=== PATIENT | male | born 1940 | race Caucasian/White ===

== ENCOUNTER 2018-03-11 13:12 | Emergency (ER) | payer MEDICARE, BC ==
[~2018-03-11] VITALS: Ht 182.9 cm; Wt 161.0 kg
[~2018-03-11 13:12] MED LIST: ASPI81TA82 PO; AZIT250T74 PO; CARD300C5 PO; CEFU1TAB43 PO; DUONI INH; HYDR-2768 PO; MEDR4PAK3 PO; PROT40TA PO; ROBIDMS PO; Z.0.OXYGENDME FM
[2018-03-11 13:23] VITALS: BP 172/79; PULSE 79; RESP 18; TEMP 98.6; O2SAT 93
[2018-03-11] MEDS ORDERED: SODIUM CHLORIDE 0.9% FLUSH 10 ML FLUSH IVF PRN (13:45)
[2018-03-11] MEDS ORDERED: methylPREDNISolone SOD SUCC 125 MG/2 ML VIAL IV PUSH ONE (13:45)
[2018-03-11] MEDS: RESP: ALBUTEROL 2.5 MG/3 ML NEB (SCH) INH (14:03)
[2018-03-11 14:29] LABS: AUTOMATED NEUTROPHIL # 10.8 TH/MM3 (1.8-7.7); BASOPHIL # 0.3 TH/MM3 (0-0.2); BASOPHIL % 1.9 % (0.0-2.0); EOSINOPHIL # 0.1 TH/MM3 (0-0.4); EOSINOPHIL % 0.7 % (0.0-4.0); HEMATOCRIT 42.4 % (39.0-51.0); HEMOGLOBIN 14.2 GM/DL (13.0-17.0); LYMPH % 8.7 % (9.0-44.0); LYMPHOCYTE # 1.2 TH/MM3 (1.0-4.8); MEAN CELL VOLUME 96.8 FL (80.0-100.0); MEAN CORPUSCULAR HEMOGLOBIN 32.5 PG (27.0-34.0); MEAN CORPUSCULAR HGB CONC 33.6 % (32.0-36.0); MEAN PLATELET VOLUME 10.1 FL (7.0-11.0); MONO % 8.6 % (0.0-8.0); MONOCYTE # 1.2 TH/MM3 (0-0.9); NEUT % 80.1 % (16.0-70.0); PLATELET COUNT 169 TH/MM3 (150-450); RED BLOOD COUNT 4.38 MIL/MM3 (4.50-5.90); RED CELL DISTRIBUTION WIDTH 13.1 % (11.6-17.2); WHITE BLOOD COUNT 13.6 TH/MM3 (4.0-11.0)
--- NOTE | 2018-03-11 14:29 | PD ---
HPI Chief Complaint: Cold / Flu Symptoms Time Seen by Provider: 13:37 Travel History International Travel<30 days: No Contact w/Intl Traveler<30days: No Traveled to known affect area: No History of Present Illness HPI 77-year-old male with history of COPD presents with productive cough 1 week. Reporting subjective fever and chills for the last 3 days. Reports orthopnea although reports this is chronic and only slightly worse this week due to the sputum production. He denies chest pain, palpitations. He reports he has chronic dyspnea due to COPD and does not endorse acute worsening. Symptom severity is moderate. No aggravating or alleviating factors. According to the EMR he was last seen in 2012 and admitted for pneumonia. He reports the symptoms are much less severe than his prior visit. [facility] Past Medical History Narrative Medical History of COPD, hypertension Hx Anticoagulant Therapy: No Cancer: Yes (prostate 14 years ago) Cardiovascular Problems: Yes (HTN) COPD: Yes Diabetes: No Diminished Hearing: No Endocrine: No Genitourinary: Yes Hypertension: Yes Immune Disorder: No Musculoskeletal: No Neurologic: No Psychiatric: No Reproductive: No Respiratory: Yes (COPD, ASTHMA) Immunizations Current: Yes Past Surgical History Abdominal Surgery: Yes (gall bladder removed) Cardiac Surgery: No Eye Surgery: Yes (detatched retina left eye, cataract bilat eye sx) Thoracic Surgery: Yes (right lower lobe removed) Social History Alcohol Use: Yes Tobacco Use: No Substance Use: No Allergies-Medications (Allergen,Severity, Reaction): Coded Allergies: No Known Allergies (Unverified Adverse Reaction, Unknown, 03/11/18) Reported Meds & Prescriptions Reported Meds & Active Scripts Active Reported Cardizem CD 24 HR (Diltiazem CD 24 HR) 360 Mg Caper 300 Mg PO DAILY Lisinopril 40 Mg Tab 40 Mg PO DAILY Review of Systems Except as stated in HPI: all other systems reviewed are Neg General / Constitutional: Positive: Fever Eyes: No: Visual changes HENT: No: Headaches Cardiovascular: No: Chest Pain or Discomfort Respiratory: Positive: Cough, Wheezing Gastrointestinal: No: Abdominal Pain Genitourinary: No: Dysuria Musculoskeletal: No: Pain Physical Exam Narrative GENERAL: Alert and well-appearing 77-year-old male. No distress. SKIN: Warm and dry. HEAD: Normocephalic. EYES: No scleral icterus. No injection or drainage. NECK: Supple, trachea midline. No JVD or lymphadenopathy. CARDIOVASCULAR: Regular rate and rhythm without murmurs, gallops, or rubs. RESPIRATORY: Breath sounds equal bilaterally. No accessory muscle use. Faint expiratory wheezes GASTROINTESTINAL: Abdomen soft, non-tender, obese abdomen. MUSCULOSKELETAL: No cyanosis. Bilateral lower extremity nonpitting edema with chronic hyperpigmented discoloration. Patient reports no change in swelling. Extremities are warm. BACK: Nontender without obvious deformity. No CVA tenderness. Data Data Last Documented VS Vital Signs Date Time Temp Pulse Resp B/P (MAP) Pulse Ox O2 Delivery O2 Flow Rate FiO2 03/11/18 14:37 97 Room Air 03/11/18 13:23 98.6 79 18 172/79 (110) Orders Orders Complete Blood Count With Diff (03/11/18 13:44) Basic Metabolic Panel (Bmp) (03/11/18 13:44) B-Type Natriuretic Peptide (03/11/18 13:44) Influenzae A/B Antigen (03/11/18 13:44) Blood Culture (03/11/18 13:44) Iv Access Insert/Monitor (03/11/18 13:44) Chest, Single Ap (03/11/18 13:44) Sodium Chloride 0.9% Flush (Ns Flush) (03/11/18 13:45) Methylprednisolone So Succ Inj (Solumedr (03/11/18 13:45) Albuterol Neb (Albuterol Neb) (03/11/18 13:45) Labs Laboratory Tests Test 03/11/18 14:10 White Blood Count 13.6 TH/MM3 Red Blood Count 4.38 MIL/MM3 Hemoglobin 14.2 GM/DL Hematocrit 42.4 % Mean Corpuscular Volume 96.8 FL Mean Corpuscular Hemoglobin 32.5 PG Mean Corpuscular Hemoglobin Concent 33.6 % Red Cell Distribution Width 13.1 % Platelet Count 169 TH/MM3 Mean Platelet Volume 10.1 FL Neutrophils (%) (Auto) 80.1 % Lymphocytes (%) (Auto) 8.7 % Monocytes (%) (Auto) 8.6 % Eosinophils (%) (Auto) 0.7 % Basophils (%) (Auto) 1.9 % Neutrophils # (Auto) 10.8 TH/MM3 Lymphocytes # (Auto) 1.2 TH/MM3 Monocytes # (Auto) 1.2 TH/MM3 Eosinophils # (Auto) 0.1 TH/MM3 Basophils # (Auto) 0.3 TH/MM3 CBC Comment DIFF FINAL Differential Comment Blood Urea Nitrogen 8 MG/DL Creatinine 0.70 MG/DL Random Glucose 110 MG/DL Calcium Level 9.6 MG/DL Sodium Level 135 MEQ/L Potassium Level 4.5 MEQ/L Chloride Level 101 MEQ/L Carbon Dioxide Level 27.3 MEQ/L Anion Gap 7 MEQ/L Estimat Glomerular Filtration Rate 109 ML/MIN B-Type Natriuretic Peptide 69 PG/ML [facility] Medical Decision Making Medical Screen Exam Complete: Yes Emergency Medical Condition: Yes Interpretation(s) Afebrile. No tachycardia. Mildly hypertensive. Pulse ox 94-97% on room air Influenza: Negative CBC: mild leukocytosis 13.6 BMP: No acute abnormalities BNP: 69 CXR: Patchy infiltrate right base Differential Diagnosis Pneumonia, COPD exacerbation, CHF Narrative Course 77-year-old male here with productive cough 1 week. Clinically he is well- appearing. On exam he does have bilateral expiratory wheeze. No respiratory distress. He was given 125 IV Solu-Medrol, albuterol neb 2. On reexam he reports symptom improvement. X-ray found patchy infiltrates on the right lung base. Mild leukocytosis with WBC 13. All findings were discussed with patient. Patient verbalizes wanting to go home and would not like to be admitted. He clinically looks well and I think outpatient oral antibiotics as appropriate. Return precautions were discussed. Patient verbalizes understanding and agrees to plan Diagnosis Primary Impression: PNA (pneumonia) Qualified Codes: J18.1 - Lobar pneumonia, unspecified organism Referrals: Arvind Maciel MD Additional Instructions: Medication as directed. Schedule follow-up appointment with primary doctor. Return if you have new or worsening symptoms Scripts Benzonatate (Tessalon Perles) 100 Mg Cap 200 MG PO TID Y for COUGH, #12 CAP 0 Refills Prov: Rachna Dahl [employer] 03/11/18 Prednisone (Prednisone) 20 Mg Tab 40 MG PO DAILY, #10 TAB 0 Refills Take 40 mg (2 tablets) daily for 5 days Prov: Rachna Dahl [employer] 03/11/18 Levofloxacin (Levaquin) 750 Mg Tablet 750 MG PO DAILY for Infection for 5 Days, #5 TAB 0 Refills Prov: Rachna Dahl 03/11/18 Disposition: 01 DISCHARGE HOME Condition: Stable Rachna Dahl March 11, 2018 14:29
[2018-03-11] MEDS ORDERED: CARD360C PO (14:47)
[2018-03-11] MEDS ORDERED: LISI40TA PO (14:47)
[2018-03-11 14:52] LABS: CALCIUM 9.6 MG/DL (8.5-10.1)
--- NOTE | 2018-03-11 14:52 | RADRPT ---
EXAM DATE/TIME: 03/11/2018 14:37 [place] COMPARISON: No previous studies available for comparison. INDICATIONS : Short of breath. MEDICAL HISTORY : Diabetes mellitus type II. SURGICAL HISTORY : None. ENCOUNTER: Initial ACUITY: 1 day PAIN SCORE: 0/10 LOCATION: Bilateral chest FINDINGS: A single view of the chest demonstrates a mild patchy infiltrate in the right lung base. Otherwise, t he rest of lungs are grossly clear. There are some chronic interstitial changes bilaterally. No defin ite pleural effusions. The heart size is enlarged. The bony structures are grossly intact.. CONCLUSION: Mild patchy infiltrate in the right lung base. Ambrose Hernandez MD on March 11, 2018 at 14:49 Board Certified Radiologist. This report was verified electronically.
[2018-03-11 14:53] LABS: BICARBONATE 27.3 MEQ/L (21.0-32.0)
[2018-03-11 14:56] LABS: CREATININE 0.7 MG/DL (0.60-1.30)
[2018-03-11] MEDS ORDERED: BENZ100 PO (15:15)
[2018-03-11] MEDS ORDERED: PRED20 PO (15:15)
[2018-03-11] MEDS ORDERED: LEVA750T9 PO (15:15)
== END 2018-03-11 15:27 | disposition home or self-care (01) ==
LOC: PHEFT 13:12
DX: J18.1 Lobar pneumonia, unspecified organism (principal); J44.0 Chronic obstructive pulmonary disease with (acute) lower respiratory infection; R06.2 Wheezing; E11.9 Type 2 diabetes mellitus without complications; I10 Essential (primary) hypertension
CPT/HCPCS: 71045; 80048; 83880; 85025; 87040; 87804; 94640; 94664; 96374; 99284; J2930; J7613